=== PATIENT | female | born 1960 | race Caucasian/White ===

== ENCOUNTER → 2016-07-04 | Outpatient (CLI) | payer OTHER ==
[~2016-07-04] MED LIST: CEVI30CA PO; CHOL100010 PO; DICL-201 PO; EFFSR375 PO; FOLI1TAB7 PO; HYDR200T5 PO; IBUP-103 PO; METH2.5T PO; METO100T7 PO; NIFE1TAB53 PO
[2016-07-04 13:10] LABS: BASO % 0.3 %; BASO ABS # 0.01 K/uL (0-0.2); COMPLETE YES; EOS % 1.1 %; LYMPH % 23.6 %; LYMPH ABS # 0.86 K/uL (1.2-3.4); MEAN CELL VOLUME 79.4 fL (80-100); MEAN CORPUSCULAR HEMOGLOBIN 27.1 pg (25-34); MEAN CORPUSCULAR HGB CONC 34.1 g/dl (32-36); MEAN PLATELET VOLUME 9.7 fL (7.4-10.4); MONO % 8.2 %; NEUT % 66.8 %; PLATELET COUNT 162 K/uL (130-400); RED BLOOD COUNT 4.91 M/uL (4.2-5.4); WHITE BLOOD COUNT 3.65 K/uL (4.8-10.8)
[2016-07-04 13:43] LABS: ALB/GLOB RATIO 1.1 (0.9-2); ALKALINE PHOSPHATASE 123 U/L (45-117); ALT/SGPT 39 U/L (12-78); AST/SGOT 18 U/L (15-37); BLOOD UREA NITROGEN 11 mg/dl (7-18); BUN/CREATININE RATIO 19.6 (10-20); CALCIUM 8.7 mg/dl (8.5-10.1); CARBON DIOXIDE 27 mmol/L (21-32); CHLORIDE 103 mmol/L (98-107); CREATININE 0.58 mg/dl (0.60-1.20); GLUCOSE 109 mg/dl (70-99); POTASSIUM 3.4 mmol/L (3.5-5.1); SODIUM 139 mmol/L (136-145)
== END | disposition home or self-care (01) ==
LOC: C.LAB1850 11:47
PROVIDERS: ATTEND Internal Medicine
DX: F41.8 Other specified anxiety disorders (principal); I10 Essential (primary) hypertension; M35.00 Sjogren syndrome, unspecified; Z11.59 Encounter for screening for other viral diseases

== ENCOUNTER → 2016-10-08 | Outpatient (CLI) | payer OTHER | END | disposition home or self-care (01) | LOC: C.PAPS 11:29 | PROVIDERS: ATTEND Obstetrics & Gynecology | DX: Z12.4 Encounter for screening for malignant neoplasm of cervix (principal); Z90.710 Acquired absence of both cervix and uterus ==

== ENCOUNTER → 2016-12-16 | Outpatient (CLI) | payer OTHER ==
--- NOTE | 2016-12-17 07:38 | MAMMOGRAPHY REPORT ---
BILATERAL DIGITAL SCREENING MAMMOGRAM TOMOSYNTHESIS WITH CAD: 12/16/2016 CLINICAL HISTORY: Routine screening. Patient reported bilateral breast tenderness and fullness for 1 week during this screening examination. TECHNIQUE: Breast tomosynthesis in addition to standard 2D mammography was performed. Current study was also evaluated with a Computer Aided Detection (CAD) system. COMPARISON: Comparison is made to exams dated: 12/14/2015 mammogram, 12/12/2014 mammogram, 07/18/2015 charmaine mogram, 12/06/2012 mammogram, 12/03/2011 mammogram, and 11/28/2010 mammogram - [facility]. BREAST COMPOSITION: There are scattered areas of fibroglandular density in both breasts. FINDINGS: There are multiple bilateral circumscribed masses scattered in the breasts, which is a typi anita benign mammographic pattern. There are a few benign-appearing punctate microcalcifications. N o suspicious spiculated or irregular mass, architectural distortion or cluster of new, suspicious christa rocalcifications is seen. IMPRESSION: ACR BI-RADS CATEGORY 1: NEGATIVE 1. There is no mammographic evidence of malignancy. A 1 year screening mammogram is recommended. 2. Clinical follow-up is recommended for the reported of bilateral breast tenderness and fullness. The patient will receive written notification of the results. Approximately 10% of breast cancers are not detected with mammography. A negative mammographic report should not delay biopsy if a clinically suggestive mass is present. Joselyn Dominguez M.D. ay/:12/16/2016 17:20:07 Vehicle Service Agent: Hayley WANG(Shaji)(Terry), [facility] letter sent: Normal 1/2 BI-RADS Code: ACR BI-RADS Category 1: Negative
== END | disposition home or self-care (01) ==
LOC: C.MAMM 09:35
PROVIDERS: ATTEND Obstetrics & Gynecology
DX: Z12.31 Encounter for screening mammogram for malignant neoplasm of breast (principal); N64.4 Mastodynia

== ENCOUNTER → 2017-01-04 | Outpatient (CLI) | payer OTHER ==
[2017-01-04 14:37] LABS: ALT/SGPT 54 U/L (12-78); AST/SGOT 29 U/L (15-37); BLOOD UREA NITROGEN 12 mg/dl (7-18); BUN/CREATININE RATIO 21.2 (10-20); CALCIUM 8.7 mg/dl (8.5-10.1); CARBON DIOXIDE 29 mmol/L (21-32); CHLORIDE 105 mmol/L (98-107); CREATININE 0.55 mg/dl (0.60-1.20); GLUCOSE 122 mg/dl (70-99); POTASSIUM 3.6 mmol/L (3.5-5.1); SODIUM 140 mmol/L (136-145)
[2017-01-04 14:44] LABS: ALB/GLOB RATIO 1.2 (0.9-2); ALKALINE PHOSPHATASE 117 U/L (45-117); CHOLESTEROL 180 mg/dl (0-200); CHOLESTEROL/HDL RATIO 4.6; FERRITIN 99.8 ng/ml (8.0-388.0); HDL CHOLESTEROL 39 mg/dl; LDL CHOLESTEROL CALCULATED 108 mg/dl; TOTAL IRON BINDING CAPACITY 353 mcg/dl (250-450); TRIGLYCERIDES 166 mg/dl (0-150); VERY LOW DENSITY LIPOPROT CALC 33 mg/dl
[2017-01-08 04:49] LABS: ANTI-CENTROMERE AB <1.0 NEG AI (<1.0 NEG); ANTI-SS-A >8.0 POS AI (<1.0 NEG); ANTI-SS-B <1.0 NEG AI (<1.0 NEG); DNA ds CRITHIDIA NEGATIVE (NEGATIVE); Sm Antibody <1.0 NEG AI (<1.0 NEG)
[2017-01-08 15:54] LABS: ANA TITER > OR = 1:1280 TITER (<1:40)
== END ==
LOC: C.LABSPEC 14:00
PROVIDERS: ATTEND Internal Medicine
DX: H04.129 Dry eye syndrome of unspecified lacrimal gland (principal); Z79.1 Long term (current) use of non-steroidal anti-inflammatories (NSAID); R76.8 Other specified abnormal immunological findings in serum; M35.1 Other overlap syndromes; E53.8 Deficiency of other specified B group vitamins; Z85.038 Personal history of other malignant neoplasm of large intestine; R53.83 Other fatigue; E55.9 Vitamin D deficiency, unspecified

== ENCOUNTER → 2017-01-29 | Outpatient (CLI) | payer OTHER | END | disposition home or self-care (01) | LOC: C.LAB 12:46 | PROVIDERS: ATTEND Internal Medicine | DX: R73.01 Impaired fasting glucose (principal) ==

== ENCOUNTER → 2017-03-04 | Outpatient (CLI) | payer OTHER ==
--- NOTE | 2017-03-04 15:08 | DIAGNOSTIC IMAGING REPORT ---
L-SPINE MIN 4 VIEWS ROUTINE HISTORY: 56 years-old Female M54.5 Mechanical low back [id number] chronic low back pain without reported trauma. COMPARISON: CT abdomen and pelvis 09/15/2011 TECHNIQUE: 5 views of the lumbar spine. FINDINGS: There is mild convex right curvature of the lumbar spine. Mild multilevel facet arthropathy is noted. No significant intervertebral disc space narrowing. No spondylolysis or spondylolisthesis. Soft tissues are unremarkable. IMPRESSION: 1. No acute fracture or subluxation. 2. Multilevel mild facet arthropathy without significant intervertebral disc space narrowing identified. The above report was generated using voice recognition software. It may contain grammatical, syntax or spelling errors. Electronically signed by: Santi Ca M.D. 03/04/2017 3:07 PM Dictated Date/Time: 03/04/2017 3:03 PM
== END | disposition home or self-care (01) ==
LOC: C.RAD1850 14:33
PROVIDERS: ATTEND Internal Medicine Rheumatology
DX: M54.5 Low back pain (principal)

== ENCOUNTER → 2017-03-15 | Outpatient (CLI) | payer OTHER | END | disposition home or self-care (01) | LOC: C.LAB 13:08 | PROVIDERS: ATTEND Physician Assistant | DX: E11.9 Type 2 diabetes mellitus without complications (principal) ==

== ENCOUNTER → 2017-07-04 | Outpatient (CLI) | payer OTHER ==
[~2017-07-04] MED LIST changes: -FOLI1TAB7 PO; +FOLI1TAB8 PO
[2017-07-04 14:31] LABS: BASO % 0.3 %; BASO ABS # 0.01 K/uL (0-0.2); EOS % 1.4 %; EOS ABS # 0.05 K/uL (0-0.5); HEMATOCRIT 42.9 % (37-47); HEMOGLOBIN 14.3 g/dL (12.0-16.0); IG# 0.01 K/uL (0.00-0.02); LYMPH ABS # 1.18 K/uL (1.2-3.4); MEAN CELL VOLUME 80.3 fL (80-100); MEAN CORPUSCULAR HEMOGLOBIN 26.8 pg (25-34); MEAN CORPUSCULAR HGB CONC 33.3 g/dl (32-36); MEAN PLATELET VOLUME 9.6 fL (7.4-10.4); MONO % 6.8 %; MONO ABS # 0.25 K/uL (0.11-0.59); NEUT % 59.2 %; NEUT ABS # 2.19 K/uL (1.4-6.5); PLATELET COUNT 131 K/uL (130-400); RED CELL DISTRIBUTION WIDTH CV 14.5 % (11.5-14.5); RED CELL DISTRIBUTION WIDTH SD 42.2 fL (36.4-46.3); WHITE BLOOD COUNT 3.69 K/uL (4.8-10.8)
[2017-07-04 14:39] LABS: HEMOGLOBIN A1C 6.2 % (4.5-5.6)
[2017-07-04 14:50] LABS: ALBUMIN 3.8 gm/dl (3.4-5.0); ALT/SGPT 40 U/L (12-78); CREATININE 0.67 mg/dl (0.60-1.20)
[2017-07-04 14:53] LABS: ALKALINE PHOSPHATASE 125 U/L (45-117); AST/SGOT 21 U/L (15-37); TOTAL PROTEIN 7.5 gm/dl (6.4-8.2)
== END | disposition home or self-care (01) ==
LOC: C.LAB 14:08
PROVIDERS: ATTEND Internal Medicine Rheumatology
DX: E11.9 Type 2 diabetes mellitus without complications (principal); R53.83 Other fatigue; M35.00 Sjogren syndrome, unspecified; Z79.1 Long term (current) use of non-steroidal anti-inflammatories (NSAID); R76.8 Other specified abnormal immunological findings in serum